=== PATIENT | male | born 1965 | race African-American/Black ===

== ENCOUNTER 2016-09-07 09:25 | Emergency (ER) | payer BC ==
[~2016-09-07] VITALS: Ht 182.9 cm; Wt 111.1 kg
[2016-09-07 09:43] VITALS: BP 150/85
[2016-09-07] MEDS ORDERED: diphenhydrAMINE HCL 25 MG CAPSULE PO ONE (09:45)
[2016-09-07] MEDS ORDERED: METRONIDAZOLE 500 MG TABLET. PO ONE (09:45)
[2016-09-07] MEDS ORDERED: cefTRIAXone IM 250 MG VIAL IM ONE (09:45)
[2016-09-07] MEDS ORDERED: AZITHROMYCIN 250 MG TABLET. PO ONE (09:45)
[2016-09-07] MEDS ORDERED: predniSONE 20 MG TABLET PO ONE (09:45)
--- NOTE | 2016-09-07 09:52 | PHYS DOC ---
Past Medical History Past Medical History: No Pertinent History Past Surgical History: No Surgical History Alcohol Use: None Drug Use: Marijuana Adult General Chief Complaint Chief Complaint: SEXUALLY TRANSMITTED DISEASE HPI HPI Patient is a 51 year old male with no significant medical history who is here to be treated for STDs. Patient's was seen by me and tested positive for Trichomonas hence I recommended patient to be treated. Patient has no symptoms. Review of Systems Review of Systems Constitutional: Denies fever or chills [] Eyes: Denies change in visual acuity, redness, or eye pain [] HENT: Denies nasal congestion or sore throat [] Respiratory: Denies cough or shortness of breath [] Cardiovascular: No additional information not addressed in HPI [] GI: Denies abdominal pain, nausea, vomiting, bloody stools or diarrhea [] : STD treatment Musculoskeletal: Denies back pain or joint pain [] Integument: Denies rash or skin lesions [] Neurologic: Denies headache, focal weakness or sensory changes [] Endocrine: Denies polyuria or polydipsia [] Current Medications Current Medications Current Medications Medications (Trade) Dose Ordered Sig/Johanna Start Time Stop Time Status Last Admin Dose Admin Azithromycin (Zithromax) 1,000 mg 1X ONCE 09/07/16 09:45 09/07/16 09:46 DC Ceftriaxone Sodium (Rocephin Im) 250 mg 1X ONCE 09/07/16 09:45 09/07/16 09:46 DC Diphenhydramine HCl (Benadryl) 25 mg 1X ONCE 09/07/16 09:45 09/07/16 09:46 DC Metronidazole (Flagyl) 2,000 mg 1X ONCE 09/07/16 09:45 09/07/16 09:46 DC Prednisone (Prednisone) 60 mg 1X ONCE 09/07/16 09:45 09/07/16 09:46 DC Allergies Allergies Allergies Coded Allergies Type Severity Reaction Last Updated Verified Penicillins Allergy Unknown 10/05/13 Yes Physical Exam Physical Exam Constitutional: Well developed, well nourished, no acute distress, non-toxic appearance. [] HENT: Normocephalic, atraumatic, bilateral external ears normal, oropharynx moist, no oral exudates, nose normal. [] Eyes: PERRLA, EOMI, conjunctiva normal, no discharge. [] Neck: Normal range of motion, no tenderness, supple, no stridor. [] Cardiovascular:Heart rate regular rhythm, no murmur [] Lungs & Thorax: Bilateral breath sounds clear to auscultation [] Abdomen: Bowel sounds normal, soft, no tenderness, no masses, no pulsatile masses. [] Skin: Warm, dry, no erythema, no rash. [] Back: No tenderness, no CVA tenderness. [] Extremities: No tenderness, no cyanosis, no clubbing, ROM intact, no edema. [] Neurologic: Alert and oriented X 3, normal motor function, normal sensory function, no focal deficits noted. [] Psychologic: Affect normal, judgement normal, mood normal. [] Current Patient Data Vital Signs Vital Signs Date Time Temp Pulse Resp B/P Pulse Ox O2 Delivery O2 Flow Rate FiO2 09/07/16 09:43 98.2 53 20 99 Room Air 98.2 EKG EKG [] Radiology/Procedures Radiology/Procedures [] Course & Med Decision Making Course & Med Decision Making Pertinent Labs and Imaging studies reviewed. (See chart for details) Patient is in the ED to be treated for STDs. The tested for positive for Trichomonas. Patient was given standard STD treatment including Flagyl Rocephin and azithromycin. Educated both of them on safe sex practices especially the need to use protection. Dragon Disclaimer Dragon Disclaimer This electronic medical record was generated, in whole or in part, using a voice recognition dictation system. Departure Departure Impression: Primary Impression: Concern about STD in male without diagnosis Disposition: 01 HOME, SELF-CARE Condition: STABLE Referrals: HERBERT RENO (PCP) Follow-up with your doctor in one week Patient Instructions: Sexually Transmitted Diseases-[facility] Additional Instructions: You were treated for STDs. Use protection at all times. Ensure all your partners get treated. Do not have sex for a week. YAMILEX SAUNDERS APRN Sep 07, 2016 09:51
[2016-09-07 10:27] LABS: BILIRUBIN,URINE NEGATIVE (NEG); GLUCOSE,URINE NEGATIVE (NEG)
[2016-09-07 10:28] LABS: BACTERIA,URINE FEW /HPF (0-FEW); NITRITE,URINE NEGATIVE (NEG); PROTEIN,URINE NEGATIVE (NEG-TRACE); RBC,URINE RARE /HPF (0-2); SQUAMOUS EPITHELIAL CELL,UR FEW /LPF; UROBILINOGEN,URINE 0.2 mg/dL (0.2 mg/dL); WBC,URINE RARE /HPF (0-4)
== END 2016-09-07 10:42 | disposition home or self-care (01) ==
LOC: ER 09:25
DX: Z11.3 Encounter for screening for infections with a predominantly sexual mode of transmission (principal); F12.10 Cannabis abuse, uncomplicated; Z88.0 Allergy status to penicillin
CPT/HCPCS: 81001; 87491; 87591; 96372; 99284; J0696; J7512; Q0144; Q0163; 99283-25

== ENCOUNTER 2019-01-20 21:32 | Emergency (ER) | payer BC ==
[~2019-01-20] VITALS: Ht 182.9 cm; Wt 106.6 kg
[2019-01-20 22:58] LABS: BILIRUBIN,URINE NEGATIVE (NEG); CLARITY,URINE CLEAR; COLOR,URINE YELLOW; NITRITE,URINE NEGATIVE (NEG); PROTEIN,URINE NEGATIVE (NEG-TRACE)
[2019-01-20 23:05] LABS: BACTERIA,URINE 0 /HPF (0-FEW); WBC,URINE 0 /HPF (0-4)
[2019-01-21] MEDS ORDERED: IV NORMAL SALINE 1000ML BAG 1,000 ML IV ONE (00:15)
[2019-01-21 00:22] LABS: BASO % 1 % (0-3); EOS # 0.1 x10^3/uL (0.0-0.7); EOS % 2 % (0-3); HEMATOCRIT 39.3 % (39.0-53.0); HEMOGLOBIN 13.1 g/dL (13.0-17.5); LYMPH # 2.1 x10^3/uL (1.0-4.8); LYMPH % 33 % (24-48); MEAN CORPUSCULAR HEMOGLOBIN 28 pg (25-35); MEAN CORPUSCULAR HGB CONC 34 g/dL (31-37); MEAN CORPUSCULAR VOLUME 84 fL (79-100); MONO # 0.6 x10^3/uL (0.0-1.1); MONO % 9 % (0-9); NEUT # 3.6 x10^3/uL (1.8-7.7); NEUT % 56 % (31-73); PLATELET COUNT 189 x10^3/uL (140-400); RED BLOOD COUNT 4.67 x10^6/uL (4.30-5.70); RED CELL DISTRIBUTION WIDTH 14.8 % (11.5-14.5); WHITE BLOOD COUNT 6.5 x10^3/uL (4.0-11.0)
[2019-01-21 00:43] LABS: CALCIUM 8.9 mg/dL (8.5-10.1); CREATININE 1.1 mg/dL (0.7-1.3); GFR 85.4; POTASSIUM 3.6 mmol/L (3.5-5.1)
[2019-01-21 00:47] LABS: ALBUMIN 3.5 g/dL (3.4-5.0); ALBUMIN/GLOBULIN RATIO 0.8 (1.0-1.7); MAGNESIUM 1.7 mg/dL (1.8-2.4); TOTAL BILIRUBIN 0.1 mg/dL (0.2-1.0); TOTAL PROTEIN 8.1 g/dL (6.4-8.2)
--- NOTE | 2019-01-21 00:50 | PHYS DOC ---
Past Medical History Past Medical History: No Pertinent History Past Surgical History: Other Additional Past Surgical Histo: Bilateral Carpal Tunnel Smoking: Cigarettes Alcohol Use: Occasionally Drug Use: Marijuana Adult General Chief Complaint Chief Complaint: ABDOMINAL PAIN HPI HPI Patient is a 53 year old male who presents with abdominal pain and right flank pain. Pt reports having LLQ abdominal pain started on Sunday (01/14/2019). The pain in the LLQ is constant, dull pain with intermittent crampy and sharp pain. He rates the pain as 7/10. Pt also endorses pain in the right flank. It worsens with urination and no pain on having bowel movement. On last Sunday, his PCP diagnosed him with cystitis and prescribed Cipro. Pt reports his condition continues getting worse since Sunday. The pain is exacerbated with pressure and soon after eating. He also experiences some tenesmus since onset of symptoms. He was told to have a normal result on his recent colonoscopy in November 2018. Denies any N/V, F/C. Review of Systems Review of Systems Constitutional: Denies fever or chills Eyes: Denies redness or eye pain HENT: Denies nasal congestion or sore throat Respiratory: Denies cough. Positive shortness of breath Cardiovascular: Denies chest pain or palpitations GI: Positive abdominal pain. No nausea, or vomiting : Denies dysuria or hematuria Musculoskeletal: Denies back pain or joint pain Integument: Denies rash or skin lesions Neurologic: Denies headache, focal weakness or sensory changes Complete systems were reviewed and found to be within normal limits, except as documented in this note. Current Medications Current Medications Current Medications Medications (Trade) Dose Ordered Sig/Johanna Start Time Stop Time Status Last Admin Dose Admin Ciprofloxacin (Cipro) 500 mg 1X ONCE 01/21/19 02:30 01/21/19 02:31 DC 01/21/19 02:39 500 MG Fentanyl Citrate (Fentanyl 2ml Vial) 50 mcg 1X ONCE 01/21/19 02:00 01/21/19 02:01 DC 01/21/19 01:56 50 MCG Ketorolac Tromethamine (Toradol 15mg Vial) 15 mg 1X ONCE 01/21/19 01:00 01/21/19 01:01 DC 01/21/19 01:23 15 MG Magnesium Chloride (Mag Delay) 64 mg 1X ONCE 01/21/19 02:15 01/21/19 02:27 DC 01/21/19 02:39 64 MG Metoclopramide HCl (Reglan Vial) 10 mg 1X ONCE 01/21/19 01:00 01/21/19 01:01 DC 01/21/19 01:23 10 MG Metronidazole (Flagyl) 500 mg 1X ONCE 01/21/19 02:30 01/21/19 02:31 DC 01/21/19 02:39 500 MG Sodium Chloride 1,000 ml @ 1,000 mls/hr 1X ONCE 01/21/19 00:15 01/21/19 01:14 DC 01/21/19 00:32 1,000 MLS/HR Allergies Allergies Allergies Coded Allergies Type Severity Reaction Last Updated Verified Penicillins Allergy Unknown 10/05/13 Yes Physical Exam Physical Exam Constitutional: Well developed, well nourished, no acute distress, non-toxic appearance HENT: Normocephalic, atraumatic, oropharynx moist Eyes: PERRL, EOMI, conjunctiva normal, no discharge Neck: Normal range of motion, no tenderness, supple Cardiovascular: Heart rate normal, regular rhythm Lungs & Thorax: Bilateral breath sounds clear to auscultation, no wheezing Abdomen: Soft, tenderness in LLQ. Skin: Warm, dry, no erythema, no rash Back: No tenderness, positve b/l CVA tenderness Extremities: No tenderness, ROM intact, no edema Neurologic: Alert and oriented X 3, normal motor function, normal sensory function, no focal deficits noted Psychologic: Affect normal, judgement normal, mood normal Current Patient Data Vital Signs Vital Signs Date Time Temp Pulse Resp B/P (MAP) Pulse Ox O2 Delivery O2 Flow Rate FiO2 01/21/19 02:14 51 127/73 (91) 98 Room Air 01/20/19 22:20 98.8 14 98.8 Lab Values Laboratory Tests Test 01/20/19 20:33 01/21/19 00:10 Urine Collection Type Void Urine Color Yellow Urine Clarity Clear Urine pH 6.0 Urine Specific [place] 1.020 Urine Protein Negative mg/dL (NEG-TRACE) Urine Glucose (UA) Negative mg/dL (NEG) Urine Ketones (Stick) Negative mg/dL (NEG) Urine Blood Small (NEG) Urine Nitrite Negative (NEG) Urine Bilirubin Negative (NEG) Urine Urobilinogen Dipstick 1.0 mg/dL (0.2 mg/dL) Urine Leukocyte Esterase Negative (NEG) Urine RBC 1-2 /HPF (0-2) Urine WBC 0 /HPF (0-4) Urine Bacteria 0 /HPF (0-FEW) White Blood Count 6.5 x10^3/uL (4.0-11.0) Red Blood Count 4.67 x10^6/uL (4.30-5.70) Hemoglobin 13.1 g/dL (13.0-17.5) Hematocrit 39.3 % (39.0-53.0) Mean Corpuscular Volume 84 fL (79-100) Mean Corpuscular Hemoglobin 28 pg (25-35) Mean Corpuscular Hemoglobin Concent 34 g/dL (31-37) Red Cell Distribution Width 14.8 % (11.5-14.5) H Platelet Count 189 x10^3/uL (140-400) Neutrophils (%) (Auto) 56 % (31-73) Lymphocytes (%) (Auto) 33 % (24-48) Monocytes (%) (Auto) 9 % (0-9) Eosinophils (%) (Auto) 2 % (0-3) Basophils (%) (Auto) 1 % (0-3) Neutrophils # (Auto) 3.6 x10^3/uL (1.8-7.7) Lymphocytes # (Auto) 2.1 x10^3/uL (1.0-4.8) Monocytes # (Auto) 0.6 x10^3/uL (0.0-1.1) Eosinophils # (Auto) 0.1 x10^3/uL (0.0-0.7) Basophils # (Auto) 0.0 x10^3/uL (0.0-0.2) Sodium Level 145 mmol/L (136-145) Potassium Level 3.6 mmol/L (3.5-5.1) Chloride Level 107 mmol/L (98-107) Carbon Dioxide Level 29 mmol/L (21-32) Anion Gap 9 (6-14) Blood Urea Nitrogen 19 mg/dL (8-26) Creatinine 1.1 mg/dL (0.7-1.3) Estimated GFR (Cockcroft-Gault) 85.4 BUN/Creatinine Ratio 17 (6-20) Glucose Level 94 mg/dL (70-99) Lactic Acid Level 1.0 mmol/L (0.4-2.0) Calcium Level 8.9 mg/dL (8.5-10.1) Magnesium Level 1.7 mg/dL (1.8-2.4) L Total Bilirubin 0.1 mg/dL (0.2-1.0) L Aspartate Amino Transferase (AST) 15 U/L (15-37) Alanine Aminotransferase (ALT) 19 U/L (16-63) Alkaline Phosphatase 91 U/L (46-116) Total Protein 8.1 g/dL (6.4-8.2) Albumin 3.5 g/dL (3.4-5.0) Albumin/Globulin Ratio 0.8 (1.0-1.7) L Lipase 133 U/L (73-393) Laboratory Tests 01/21/19 00:10 Laboratory Tests 01/21/19 00:10 EKG EKG [] Radiology/Procedures Radiology/Procedures []CT ABDOMEN PELVIS WO CONTRAST INDICATION: Left lower quadrant pain EXAM: Noncontrast CT of the abdomen and pelvis. Coronal and sagittal reformatted images were performed. PQRS compliance statement: One or more of the following individualized dose reduction techniques were utilized for this examination: 1. Automated exposure control 2. Adjustment of the mA and/or kV according to patient size 3. Use of iterative reconstruction technique COMPARISON: FINDINGS: No free air, free fluid, or fluid collection. Lower chest: The visualized lower lungs are aerated. No pleural or pericardial effusion. ABDOMEN: Liver: Normal hepatic size. Few small hepatic hypoattenuating foci, likely cysts. Gallbladder and biliary: Normal gallbladder without radiopaque stone. Normal caliber bile ducts. Spleen: Normal spleen. Pancreas: The noncontrast pancreas is homogeneous in attenuation without peripancreatic inflammatory changes. Adrenal glands: Normal adrenal glands. Kidneys and ureters: No opaque urinary calculi. Normal kidneys and ureters. GI tract: The stomach contains fluid and debris. Short segment of colonic wall thickening at the descending/sigmoid junction, with mild pericolic inflammation. The degree of wall thickening is slightly out of proportion to the degree of pericolic inflammation. Scattered colonic diverticulosis. Normal appendix. Vascular structures: Normal caliber abdominal aorta. Lymph nodes: No lymphadenopathy in the abdomen or pelvis. PELVIS: Genitourinary system: Normal bladder. SKELETAL STRUCTURES AND SOFT TISSUES: Mild degenerative changes of the spine. Fat-containing right inguinal hernia. IMPRESSION: There is a short segment of colonic wall thickening near the descending/sigmoid junction with mild pericolic inflammation. This may indicate acute diverticulitis, given the presence of a few nearby diverticuli. However, the degree of colonic wall thickening is somewhat out of proportion to the amount of pericolic inflammation. Correlate with any recent colonoscopy results, and consider direct visualization versus short-term follow-up CT as a neoplastic process could have a similar appearance. Electronically signed by: Bakari Shafer MD (01/21/2019 1:42 AM) [facility] Course & Med Decision Making Course & Med Decision Making Pertinent Labs and Imaging studies reviewed. (See chart for details) PT is a 53yo male presents with intermittent LLQ pain and right flank pain. Due to his abdominal symptoms, Kidney stones vs UTI vs diverticulitis vs others were considered. His labs were unremarkable, except for mild hematuria on UA. CT abdomen and pelvis with contrast shows signs of diverticulitis in descending and sigmoid colon. With normal kidneys morphology and no stone. Pt was advised to continue outpt cipro and with a prescription of Flagyl and additional cipro as well as tramadol for pain control. Patient stable for discharge with outpatient follow-up with PCP. Discussed findings and plan with patient and family, who acknowledge understanding and agreement. [] Dragon Disclaimer Dragon Disclaimer This electronic medical record was generated, in whole or in part, using a voice recognition dictation system. Departure Departure Impression: Primary Impression: Diverticulitis Disposition: 01 HOME, SELF-CARE Condition: STABLE Referrals: HERBERT RENO (PCP) SANDRA DAVIS MD Patient Instructions: Diverticulitis, Ivth-lo-Azzt Scripts Tramadol Hcl (TRAMADOL HCL) 50 Mg Tablet 50 MG PO Q6HRS PRN for PAIN, #14 TAB Take each tablet with one (1) regular strength Tylenol 325mg Prov: YANET SHAVER DO 01/21/19 Metronidazole (FLAGYL) 500 Mg Tablet 500 MG PO TID for 7 Days, #21 TAB Prov: YANET SHAVER DO 01/21/19 Ciprofloxacin Hcl (CIPRO) 500 Mg Tablet 1 TAB PO BID, #5 TAB Continue this prescription after finishing previously prescription for same medication Prov: YANET SHAVER DO 01/21/19 Ondansetron (ONDANSETRON ODT) 4 Mg Tab.rapdis 1 TAB PO PRN Q6-8HRS PRN for NAUSEA, #16 TAB Prov: YANET SHAVER DO 01/21/19 YANET SHAVER DO Jan 21, 2019 00:50
[2019-01-21] MEDS ORDERED: KETOROLAC 15 MG/ML VIAL. IV ONE (01:00)
[2019-01-21] MEDS ORDERED: METOCLOPRAMIDE HCL 10 MG/2 ML VIAL. IV ONE (01:00)
--- NOTE | 2019-01-21 01:45 | RAD ---
CT ABDOMEN PELVIS WO CONTRAST INDICATION: Left lower quadrant pain EXAM: Noncontrast CT of the abdomen and pelvis. Coronal and sagittal reformatted images were performed. PQRS compliance statement: One or more of the following individualized dose reduction techniques were utilized for this examination: 1. Automated exposure control 2. Adjustment of the mA and/or kV according to patient size 3. Use of iterative reconstruction technique COMPARISON: FINDINGS: No free air, free fluid, or fluid collection. Lower chest: The visualized lower lungs are aerated. No pleural or pericardial effusion. ABDOMEN: Liver: Normal hepatic size. Few small hepatic hypoattenuating foci, likely cysts. Gallbladder and biliary: Normal gallbladder without radiopaque stone. Normal caliber bile ducts. Spleen: Normal spleen. Pancreas: The noncontrast pancreas is homogeneous in attenuation without peripancreatic inflammatory changes. Adrenal glands: Normal adrenal glands. Kidneys and ureters: No opaque urinary calculi. Normal kidneys and ureters. GI tract: The stomach contains fluid and debris. Short segment of colonic wall thickening at the descending/sigmoid junction, with mild pericolic inflammation. The degree of wall thickening is slightly out of proportion to the degree of pericolic inflammation. Scattered colonic diverticulosis. Normal appendix. Vascular structures: Normal caliber abdominal aorta. Lymph nodes: No lymphadenopathy in the abdomen or pelvis. PELVIS: Genitourinary system: Normal bladder. SKELETAL STRUCTURES AND SOFT TISSUES: Mild degenerative changes of the spine. Fat-containing right inguinal hernia. IMPRESSION: There is a short segment of colonic wall thickening near the descending/sigmoid junction with mild pericolic inflammation. This may indicate acute diverticulitis, given the presence of a few nearby diverticuli. However, the degree of colonic wall thickening is somewhat out of proportion to the amount of pericolic inflammation. Correlate with any recent colonoscopy results, and consider direct visualization versus short-term follow-up CT as a neoplastic process could have a similar appearance. Electronically signed by: Bakari Shafer MD (01/21/2019 1:42 AM) [facility]
[2019-01-21] MEDS ORDERED: fentaNYL PF VIAL 100 MCG/2 ML VIAL IV ONE (02:00)
[2019-01-21 02:14] VITALS: BP 127/73
[2019-01-21] MEDS ORDERED: MAGNESIUM CHLORIDE ER 64 MG TABLET.ER PO ONE (02:15)
[2019-01-21] MEDS ORDERED: CIPR500T94 PO (02:23)
[2019-01-21] MEDS ORDERED: TRAM50TA PO (02:23)
[2019-01-21] MEDS ORDERED: METR500T PO (02:23)
[2019-01-21] MEDS ORDERED: ONDA4TAB12 PO (02:23)
[2019-01-21] MEDS ORDERED: metroNIDAZOLE 500 MG TABLET PO ONE (02:30)
[2019-01-21] MEDS ORDERED: CIPROFLOXACIN HCL 250 MG TABLET. PO ONE (02:30)
--- NOTE | 2019-01-21 05:16 | RAD ---
CHEST PA LATERAL INDICATION: Dyspnea. COMPARISON STUDY: 05/18/2012. FINDINGS: Lungs: Normal lung volume. No pulmonary mass or consolidation. The tracheobronchial tree and hilar structures are normal. Pleura: No pleural effusion or pneumothorax. Heart and Mediastinum: The cardiomediastinal silhouette is normal. The great vessels of the thorax are normal. Bones and Soft Tissues: The bones and soft tissues are within normal limits. IMPRESSION: No acute cardiopulmonary process. Electronically signed by: Bakari Shafer MD (01/21/2019 5:13 AM) [facility]
== END 2019-01-21 02:47 | disposition home or self-care (01) ==
LOC: ER 21:32
DX: K57.92 Diverticulitis of intestine, part unspecified, without perforation or abscess without bleeding (principal); F17.210 Nicotine dependence, cigarettes, uncomplicated; Z88.0 Allergy status to penicillin
CPT/HCPCS: 36415; 71046; 74176; 80053; 81001; 83605; 83690; 83735; 85025; 96374; 96375; 99285; J1885; J2765; J3010; J7030